=== PATIENT | female | born 1935 | race Caucasian/White ===

== ENCOUNTER 2020-09-28 11:36 | Emergency (ER) | payer MEDICARE ==
[~2020-09-28] VITALS: Ht 152.4 cm; Wt 61.8 kg
--- NOTE | 2020-09-28 12:22 | RAD ---
XR CHEST 1V History: Reason: Low heart rate chest pressure / Spl. Instructions: / History: Comparison: March 31, 2020 Findings: Low lung volumes with mild bibasilar linear atelectasis. No pleural effusion. No pneumothorax. Nelson alex DJD. Impression: 1. Low lung volumes with mild bibasilar linear atelectasis. Electronically signed by: Yony Carr DO (09/28/2020 12:20 PM) [facility]
[2020-09-28 12:34] LABS: BASO # 0.1 x10^3/uL (0.0-0.2); BASO % 1 % (0-3); EOS # 0.2 x10^3/uL (0.0-0.7); EOS % 2 % (0-3); HEMATOCRIT 40.9 % (36.0-47.0); HEMOGLOBIN 13.8 g/dL (12.0-15.5); LYMPH # 1.8 x10^3/uL (1.0-4.8); LYMPH % 22 % (24-48); MEAN CORPUSCULAR HEMOGLOBIN 33 pg (25-35); MEAN CORPUSCULAR HGB CONC 34 g/dL (31-37); MEAN CORPUSCULAR VOLUME 99 fL (79-100); MONO # 0.7 x10^3/uL (0.0-1.1); MONO % 9 % (0-9); NEUT # 5.4 x10^3uL (1.8-7.7); NEUT % 66 % (31-73); PLATELET COUNT 226 x10^3/uL (140-400); RED BLOOD COUNT 4.14 x10^6/uL (3.50-5.40); RED CELL DISTRIBUTION WIDTH 15.1 % (11.5-14.5); WHITE BLOOD COUNT 8.2 x10^3/uL (4.0-11.0)
--- NOTE | 2020-09-28 12:38 | PHYS DOC ---
Past History Past Medical History: CHF Past Surgical History: Cholecystectomy, Hysterectomy Alcohol Use: None Adult General Chief Complaint Chief Complaint: OTHER COMPLAINTS HPI HPI Patient is a [age] year old [sex] who presents with [] Review of Systems Review of Systems Fourteen body systems of review of systems have been reviewed. See HPI for pertinent positives and negative responses, other guzmán all other systems are negative, non-pertinent or non-contributory Allergies Allergies Allergies Coded Allergies Type Severity Reaction Last Updated Verified No Known Drug Allergies 09/28/20 No Physical Exam Physical Exam Constitutional: Well developed, well nourished, no acute distress, non-toxic appearance. [] HENT: Normocephalic, atraumatic, bilateral external ears normal, oropharynx moist, no oral exudates, nose normal. [] Eyes: PERRLA, EOMI, conjunctiva normal, no discharge. [] Neck: Normal range of motion, no tenderness, supple, no stridor. [] Cardiovascular:Heart rate regular rhythm, no murmur [] Lungs & Thorax: Bilateral breath sounds clear to auscultation [] Abdomen: Bowel sounds normal, soft, no tenderness, no masses, no pulsatile masses. [] Skin: Warm, dry, no erythema, no rash. [] Back: No tenderness, no CVA tenderness. [] Extremities: No tenderness, no cyanosis, no clubbing, ROM intact, no edema. [] Neurologic: Alert and oriented X 3, normal motor function, normal sensory function, no focal deficits noted. [] Psychologic: Affect normal, judgement normal, mood normal. [] Current Patient Data Vital Signs Vital Signs Date Time Temp Pulse Resp B/P (MAP) Pulse Ox O2 Delivery O2 Flow Rate FiO2 09/28/20 11:54 98.1 50 16 155/63 (93) 100 Room Air Lab Results Laboratory Tests Test 09/28/20 12:12 White Blood Count 8.2 x10^3/uL (4.0-11.0) Red Blood Count 4.14 x10^6/uL (3.50-5.40) Hemoglobin 13.8 g/dL (12.0-15.5) Hematocrit 40.9 % (36.0-47.0) Mean Corpuscular Volume 99 fL (79-100) Mean Corpuscular Hemoglobin 33 pg (25-35) Mean Corpuscular Hemoglobin Concent 34 g/dL (31-37) Red Cell Distribution Width 15.1 % (11.5-14.5) H Platelet Count 226 x10^3/uL (140-400) Neutrophils (%) (Auto) 66 % (31-73) Lymphocytes (%) (Auto) 22 % (24-48) L Monocytes (%) (Auto) 9 % (0-9) Eosinophils (%) (Auto) 2 % (0-3) Basophils (%) (Auto) 1 % (0-3) Neutrophils # (Auto) 5.4 x10^3uL (1.8-7.7) Lymphocytes # (Auto) 1.8 x10^3/uL (1.0-4.8) Monocytes # (Auto) 0.7 x10^3/uL (0.0-1.1) Eosinophils # (Auto) 0.2 x10^3/uL (0.0-0.7) Basophils # (Auto) 0.1 x10^3/uL (0.0-0.2) EKG EKG EKG ordered and interpreted by myself at 1237 hrs. as atrial fibrillation with ventricular rate of 52, QTc 496 otherwise unremarkable intervals, no axis deviation, no acute ischemic findings, no STEMI Radiology/Procedures Radiology/Procedures XR CHEST 1V History: Reason: Low heart rate chest pressure / Spl. Instructions: / History: Comparison: March 31, 2020 Findings: Low lung volumes with mild bibasilar linear atelectasis. No pleural effusion. No pneumothorax. Glenohumeral DJD. Impression: 1. Low lung volumes with mild bibasilar linear atelectasis. Electronically signed by: Yony Carr DO (09/28/2020 12:20 PM) [facility] Heart Score Risk Factors: Risk Factors: DM, Current or recent (<one month) smoker, HTN, HLP, family history of CAD, obesity. Risk Scores: Risk Factors: DM, Current or recent (<one month) smoker, HTN, HLP, family history of CAD, obesity. Course & Med Decision Making Course & Med Decision Making Pertinent Labs and Imaging studies reviewed. (See chart for details) [] Dragon Disclaimer Dragon Disclaimer This electronic medical record was generated, in whole or in part, using a voice recognition dictation system. Departure Departure: Impression: Primary Impression: Symptomatic hypotension Additional Impression: CHF (congestive heart failure) Disposition: HOME / SELF CARE / HOMELESS Condition: STABLE Referrals: MARGOT CEDEÑO MD (PCP) Patient Instructions: Hypotension, [id number] Additional Instructions: As discussed, you were seen for hypotension. Your blood pressures were actually fine throughout the entirety of your ER visit. You had a comprehensive work-up that was nonconcerning for any emergent or surgical findings. We reviewed your medicines, it is likely that you need to decrease your blood pressure medication as discussed, been Monopril, from 20 mg to 10 mg daily. The most important part of your care going forward is keeping a blood pressure log daily, aim for 1-3 measurements and keep a log of when you take these for your primary care physician and/or milk vendor to review. It would be beneficial to be seen within upcoming 5 days for repeat evaluation. If any concerning signs or symptoms present prior to outpatient follow-up please do not hesitate to come back for repeat evaluation. Is a pleasure to take care of you and I wish you the best going forward Problem Qualifiers KELLEY ALARCON DO Sep 28, 2020 12:37
[2020-09-28 13:03] VITALS: BP 127/67
[2020-09-28 13:15] LABS: GFR 52.7; POTASSIUM 4.6 mmol/L (3.5-5.1)
[2020-09-28 14:53] LABS: BACTERIA,URINE 0 /HPF (0-FEW); BILIRUBIN,URINE NEG (NEG); CLARITY,URINE CLEAR; COLOR,URINE STRAW; GLUCOSE,URINE NEG (NEG); NITRITE,URINE NEG (NEG); RBC,URINE OCC /HPF (0-2); SQUAMOUS EPITHELIAL CELL,UR MOD /LPF; UROBILINOGEN,URINE 0.2 mg/dL (0.2 mg/dL); WBC,URINE OCC /HPF (0-4)
--- NOTE | 2020-09-29 06:24 | EKG ---
[address] [address] Test Date: 2020-09-28 Test Time: 12:29:18 Pat Name: DELMI YEE Department: Room: Gender: F Gold Buyer: ALONA : 1935 Requested By: KELLEY ALARCON Order Number: [id number] Reading MD: Measurements Intervals [place] Rate: 52 P: SC: QRS: 19 QRSD: 92 T: 38 QT: 496 QTc: 464 Interpretive Statements IRREGULAR RHYTHM, NO P-WAVE FOUND OTHERWISE NORMAL ECG RI6.02 Compared to ECG 09/28/2020 12:27:52 T-wave abnormality no longer present Possible ischemia no longer present
== END 2020-09-28 13:50 | disposition home or self-care (01) ==
LOC: ER 11:36
DX: I95.9 Hypotension, unspecified (principal); I50.9 Heart failure, unspecified; Z90.49 Acquired absence of other specified parts of digestive tract; Z90.710 Acquired absence of both cervix and uterus
CPT/HCPCS: 36415; 71045; 80048; 81001; 83880; 84484; 85025; 93005; 99285-25